=== PATIENT | female | born 1965 | race Caucasian/White ===

== ENCOUNTER 2021-04-24 15:08 | Inpatient (IN) | payer BC, SELFPAY ==
[2021-04-24] VITALS (68 sets, daily range): BP systolic 112–158; BP diastolic 73–109; PULSE 88–137; RESP 11–34; TEMP 36.4–39.4; O2SAT 89–99
--- NOTE | 2021-04-24 15:00 | RT.EKG_ITS ---
APPROVED REPORT Exam: Resting ECG Reason for Exam: left shoulder pain Patient Location: E HR:107 bpm ECG Measurements Heart Rate 107 AXIS OR 181 P 38 QRSd 93 QRS -16 QT 349 T [id number] QTc 466 Conclusion Sinus tachycardia. Nonspecific st changes
--- NOTE | 2021-04-24 15:45 | DI.RAD_ITS ---
Exam(s) XR CHEST 2V PA LATERAL EXAM: XR CHEST 2V PA LATERAL CLINICAL HISTORY: chest pain, sob TECHNIQUE: 2D digital imaging was performed. COMPARISON: No exams were available for comparison FINDINGS: MEDIASTINUM: Normal. HEART: Normal. PULMONARY VASCULATURE: Normal. LUNGS: Clear. EKG leads. PLEURAL SPACE: No pleural effusion or pneumothorax. BONE:Normal. Left shoulder unremarkable as visualized. IMPRESSION: No acute pulmonary findings. DATA REPOSITORY: RADIATION DOSE DELIVERED:
--- NOTE | 2021-04-24 16:13 | ED.GENADUL_ITS ---
Discharge Plan Disposition Patient Disposition: [facility] INPATIENT Condition: Stable Discharge Details Clinical Impression: Left shoulder pain, Tachycardia Admit Date/Time: 04/24/21 21:19 Admit Provider: Crow Souza Attending Provider: Crow Souza Primary Care Provider: Maylin,[facility] ED Provider: Ioana Trimble Medical Decision Making 55-year-old female presents to ER chief complaint of left shoulder pain which began this morning around 730. Patient states that she slept wrong with her arm over her head and woke up with increased left shoulder pain. Worse on the posterior aspect of her left shoulder with palpation. She reports that it radiates up into her neck and into her left axilla. She reports shortness of breath with the pain. She denies any nausea diaphoresis cough vomiting diarrhea or abdominal pain. She reports that she had a cortisone shot 5 months ago in the shoulder was told she had arthritis. Recently seen by cardiology on and diagnosed with a heart murmur. She denies taking any pain medications prior to arrival she does endorse Biofreeze. EKG was reviewed by Dr. Murray ER attending, sinus tachycardia with not ST changes in V2 V3 V5 and V6. No old EKG available for review. At this time cardiac work-up ordered including serial troponins. Chest x-ray ordered. I will consider chest CT due to tachycardia and atypical chest pain. Will add on a D-dimer. 324 mg aspirin ordered and 2 mg of Valium for muscle relaxant. At this time patient has no IV access she has been poked multiple times by staffing operations manager prior to my arrival. EXAM: XR CHEST 2V PA LATERAL CLINICAL HISTORY: chest pain, sob TECHNIQUE: 2D digital imaging was performed. COMPARISON: No exams were available for comparison FINDINGS: MEDIASTINUM: Normal. HEART: Normal. PULMONARY VASCULATURE: Normal. LUNGS: Clear. EKG leads. PLEURAL SPACE: No pleural effusion or pneumothorax. BONE:Normal. Left shoulder unremarkable as visualized. IMPRESSION: No acute pulmonary findings. Patient has received 2 mg IM, 4 mg morphine, 4 mg of Zofran normal saline is running at 350 an hour patient is still tachycardic with a rate of 115-123 at this time lidocaine patch ordered and 1 sublingual 0.4 mg nitro see if this alleviates the pain. Patient reports to staffing operations manager that her pain is still a 10 out of 10. However she is resting quietly on bed. COMPARISON: CR XR CHEST 2V PA LATERAL 04/24/2021 5:03 PM FINDINGS: Pulmonary arteries: Normal. No pulmonary emboli. Aorta: Unremarkable. No aortic aneurysm. No aortic dissection. Lungs: Unremarkable. No consolidation. No masses. Pleural spaces: Unremarkable. No pneumothorax. No pleural effusion. Heart: Unremarkable. No cardiomegaly. No pericardial effusion. Lymph nodes: Unremarkable. No enlarged lymph nodes. Bones/joints: Unremarkable. No acute fracture. Soft tissues: Unremarkable. IMPRESSION: 1. No acute findings. 2. No pulmonary arterial embolism. Awaiting second troponin repeat EKG, mammogram hydromorphone ordered. 2014: Repeat EKG shows improvement in the ST depressions in V2 V3 V4 V5 V6. Patient's pain is down to a 6 out of 10 at this time. Liter normal saline ordered. Second troponin is pending. Patient up to the bathroom, heart rate shot up to 137. Second liter of normal saline ordered and is infusing at this time. Discussed options with patient I do recommend admission for observation will discuss with hospitalist. Spoke with Dr. Thompson who is on-call for hospitalist regarding patient case and details he agrees to accept patient for admission for observation. I will call the patient's family. Spoke with Patients Ezekiel, He verbalizes understanding of plan of care. Dr. Coelho recommends CT abdomen pelvis due to hematuria. Order added. The report of CT abdomen pelvis is unremarkable for any acute pathology. Of no te there is some submucosal edema of the proximal intrathoracic portion of the stomach and distal esophagus. And a small hiatal hernia. No kidney stone no hydronephrosis, no abdominal aortic aneurysm. Differential according to the rad read is gastritis/esophagitis and malignancy. Patient was transported up to the floor in stable condition. This text was generated using [employer] system, please disregard any oddities of phrase or misspellings. HPI General Date/Time Provider Initiated Documentation: 04/24/21 15:13 . Limitations to Documentation: no limitations . Information obtained by: patient and RN notes reviewed . HPI Narrative: 55-year-old female presents to ER chief complaint of left shoulder pain which began this morning around 730. Patient states that she slept wrong with her arm over her head and woke up with increased left shoulder pain. Worse on the posterior aspect of her left shoulder with palpation. She reports that it radiates up into her neck and into her left axilla. She reports shortness of breath with the pain. She denies any nausea diaphoresis cough vomiting diarrhea or abdominal pain. She reports that she had a cortisone shot 5 months ago in the shoulder was told she had arthritis. Recently seen by cardiology on and diagnosed with a heart murmur. She denies taking any pain medications prior to arrival she does endorse Biofreeze. Related Data Home Medications Medication Instructions Recorded Confirmed famotidine [Pepcid] 40 mg PO DAILY 04/24/21 04/24/21 omeprazole 20 mg PO DAILY 04/24/21 04/24/21 Allergies Allergy/AdvReac Type Severity Reaction Status Date / Time acetaminophen [From Vicodin] Allergy Unverified 04/24/21 15:47 cephalexin [From Keflex] Allergy Unverified 04/24/21 15:47 hydrocodone [From Vicodin] Allergy Unverified 04/24/21 15:47 meperidine [From Demerol] Allergy Unverified 04/24/21 15:48 General Stated Complaint: Chest Pain CHAITANYA: 2 Review of Systems Narrative: Constitutional: Negative for weight loss, alert and oriented, well groomed, normal body habitus, appears uncomfortable. HEENT: Denies trauma, headaches, blurry vision, nasal discharge, sore throat, trouble swallowing. Chest: Denies palpitations, irregular rhythm, reports left shoulder pain left axilla pain. Respiratory: Denies cough, hemoptysis. Reports positive shortness of breath w ith the pain. GI: Denies abdominal pain, nausea, vomiting, diarrhea, constipation. : Denies dysuria, hematuria, flank pain, rectal bleeding. Musculoskeletal: Posterior left shoulder pain worse with palpation. Worse with movement. Neuro: Denies dizziness, blurry vision, weakness, syncope, headache or facial numbness. Hematologic: Denies easy bruising, intolerance to heat or cold, hair loss. [facility] Social History Smoking/Tobacco Use Status: Never Smoking risk assessment performed?: Yes Alcohol Intake: never Substance use type: does not use Do you feel safe at home: Yes Exam Narrative Exam Narrative: Constitutional: Alert and oriented x3. Appears stated age. Normal body habitus. Head: Normocephalic, no trauma. Eyes: Pupils PERRLA, Red reflex noted, EOM's intact. Eyelids symmetrical without lesions, discharge, or swelling. ENT: Bilateral TM's WNL, External ear normal to inspection, no mastoid TTP, swelling, or erythema, Nasal turbinates WNL, no nasal discharge. Normal dentition, Posterior pharynx WNL, no exudate. Chest: RRR, Normal S1, S2, distal pulses intact. Resp: Lungs clear to auscultation bilaterally, no wheezes, rales, or rhonchi. Musculoskeletal: Normal gait, 5/5 strength to all four extremities. Tenderness noted with palpation to the sternocleidomastoid muscle no obvious deformity swelling or erythema noted. Skin: No suspicious rashes or lesions. Capillary refill less than 2 sec. Neurologic: Cranial nerves II-XII intact. Alert and oriented x 3. DTR's intact. Hematologic/Lymphatic: No ecchymosis, no lymphadenopathy. Course Vital Signs Vital signs: Vital Signs Respiratory Rate 27 H 04/24/21 15:29 Pulse Oximetry 99 04/24/21 15:29 Temperature 36.4 C L 04/24/21 15:42 Temperature Source Skin 04/24/21 15:42 Pulse 108 H 04/24/21 15:42 Pulse 109 H 04/24/21 15:50 Respiratory Rate 16 04/24/21 15:50 Respiratory Effort Non-Labored 04/24/21 15:49 Blood Pressure 144/84 H 04/24/21 15:42 Blood Pressure Position Supine 04/24/21 15:42 Pulse Oximetry 99 04/24/21 15:42 Oxygen Delivery Method Room Air 04/24/21 15:42 Oxygen Flow Rate 0 04/24/21 15:42 Pain Level 20 04/24/21 15:42
[2021-04-24] MEDS: diazePAM 2 MG TAB PO (16:20)
[2021-04-24] MEDS: Aspirin 81 MG CHEW 324 MG CH (16:20)
[2021-04-24 17:05] LABS: Abs Immature Grans 0.06 10^3/uL (0.0-0.06); Absolute Monocyte Count 0.83 10^3/uL (0.1-0.8); Absolute Neutrophil Count 12.04 10^3/uL (1.2-6.7); Basophils % 0.4; HCT 39.1 % (36.0-46.0); HGB 12.9 g/dL (11.2-15.7); Immature Grans % 0.4; Lymphocytes % 7.8; MCH 28.7 pg (27.0-33.0); MCV 86.9 fL (80-95); MPV 9.4 fL (8.0-11.0); Monocytes % 5.9; Neutrophils % 85.5; Nucleated RBC 0 %; Platelet Count 328 10^3/uL (130-400); RDW 13.4 % (11.7-14.6); RDW-SD 42.5 fL; WBC 14.08 10^3/uL (4.4-10.8)
[2021-04-24 17:06] LABS: Absolute Basophil Count 0.06 10^3/uL (0.0-0.2)
[2021-04-24 17:13] LABS: ALT 23 U/L (14-59); AST 20 U/L (15-37); Albumin 4.1 g/dL (3.4-5.0); Alkaline Phosphatase 93 U/L (46-116); Anion Gap 12.5 mmol/L (3-11); BUN 15 mg/dL (7-18); Bilirubin, Total 0.5 mg/dL (0.2-1.0); CO2 23.5 mmol/L (21.0-32.0); CREATININE 1.1 mg/dL (0.55-1.02); Calcium 9.4 mg/dL (8.5-10.1); Chloride 104 mmol/L (98-107); Glucose 125 mg/dL (74-106); Magnesium 1.8 mg/dL (1.8-2.4); Potassium 3.5 mmol/L (3.5-5.1); Sodium 140 mmol/L (136-145)
[2021-04-24] MEDS: Normal Saline 1,000 ML 350 ML IV (17:21)
[2021-04-24 17:23] LABS: Troponin I < 0.05 ng/mL (<0.06)
[2021-04-24 17:35] LABS: Prothrombin Time 10.1 sec (9.3-11.0)
--- NOTE | 2021-04-24 17:36 | DI.VRAD_ITS ---
PROCEDURE INFORMATION: Exam: XR Chest Exam date and time: 04/24/2021 4:00 PM Age: 55 years old Clinical indication: Other: Chest pain, left shoulder pain; Additional info: Chest pain, SOB, left shoulder pain, TECHNIQUE: Imaging protocol: XR of the chest. Views: 2 views. Total images: 2 COMPARISON: No relevant prior studies available. FINDINGS: Lungs: Unremarkable. No consolidation. Pleural spaces: Unremarkable. No pleural effusion. No pneumothorax. Heart/Mediastinum: Unremarkable. No cardiomegaly. Bones/joints: Unremarkable. IMPRESSION: No acute findings. Dictated and Authenticated by: Marianela Muñoz MD. Ordering:MARIA ALEJANDRA Triplett MD
[2021-04-24 17:42] LABS: D-Dimer 430 ng/mlFEU (<500)
[2021-04-24] MEDS: Ondansetron 4 MG/2 ML VIAL IVP (17:46)
--- NOTE | 2021-04-24 18:30 | DI.CT_ITS ---
Exam(s) CT CHEST PE CTA EXAM: CT CHEST PE CTA CLINICAL HISTORY: Tachycardia, Left Shoulder pain, R/O PE. TECHNIQUE: Imaging Protocol: Axial CT angiography was performed with multi-slice acquisition and mu lti-planar and/or 3D reconstructions. CONTRAST MATERIAL: Intravenous: Omnipaque 350 Contrast volume:structured data in ml COMPARISON: No exams were available for comparison FINDINGS: Pulmonary Arteries: No evidence of filling defect to suggest pulmonary emboli. Tracheobronchial tree: Patent where visualized. Mediastinum and Maegan: No dominant adenopathy or fluid collection. Hiatal hernia. Pulmonary parenchyma: No consolidation or dominant measurable mass. No architectural distortion. Pleura: No effusion or pneumothorax. Heart: The heart is not dilated. No coronary artery calcifications are seen. Aorta: Thoracic aorta non-dilated. Upper abdomen: Status post cholecystectomy. Bones: Normal. IMPRESSION: No evidence of pulmonary embolism or other acute abnormality.. RADIATION DOSE DELIVERED: 437.92mGy.cm Total DLP DATA REPOSITORY: All CT scans at this facility are submitted to the National Radiology Data Registry (NRDR) Dose Index Registry (DIR) with the [employer] (ACR). RADIATION OPTIMIZATION: All CT scans at this facility use at least one of these dose optimization te chniques: automated exposure control; mA and/or kV adjustment per patient size (includes targeted exa ms where dose is matched to clinical indication); or iterative reconstruction.
[2021-04-24] MEDS: Lidocaine 5% Patch 1 PATCH TP (18:36)
[2021-04-24] MEDS: nitroGLYcerin 0.4 MG TAB SL (18:36)
[2021-04-24] MEDS: Omnipaque 350 MG/ML 100 ML BTL IJ ×2 (19:13→21:58)
[2021-04-24] MEDS: Normal Saline - Diluent 50 ML VIAL IV ×2 (19:29→21:58)
--- NOTE | 2021-04-24 19:44 | DI.VRAD_ITS ---
PROCEDURE INFORMATION: Exam: CTA Chest With Contrast Exam date and time: 04/24/2021 6:44 PM Age: 55 years old Clinical indication: Patient HX: Tachycardia, left shoulder pain; Additional info: R/0 pe TECHNIQUE: Imaging protocol: Computed tomographic angiography of the chest with contrast. 3D rendering (Not supervised by radiologist): MIP and/or 3D reconstructed images were created by the technologist. Total images: 1560 COMPARISON: CR XR CHEST 2V PA LATERAL 04/24/2021 5:03 PM FINDINGS: Pulmonary arteries: Normal. No pulmonary emboli. Aorta: Unremarkable. No aortic aneurysm. No aortic dissection. Lungs: Unremarkable. No consolidation. No masses. Pleural spaces: Unremarkable. No pneumothorax. No pleural effusion. Heart: Unremarkable. No cardiomegaly. No pericardial effusion. Lymph nodes: Unremarkable. No enlarged lymph nodes. Bones/joints: Unremarkable. No acute fracture. Soft tissues: Unremarkable. IMPRESSION: 1. No acute findings. 2. No pulmonary arterial embolism. Dictated and Authenticated by: Marianela Muñoz MD. Ordering:MARIA ALEJANDRA Triplett MD
[2021-04-24] MEDS: HYDROmorphone 2 MG/ML VIAL 1 MG IVP (20:04)
[2021-04-24 20:33] LABS: Troponin I < 0.05 ng/mL (<0.06)
[2021-04-24] MEDS: Normal Saline 1,000 ML 1000 ML IV (20:33)
[2021-04-24 20:36] LABS: Bilirubin Negative (Negative); Blood Small (Negative); Clarity Clear (Clear); Glucose Negative (Negative); Ketones Negative (Negative); Leukocyte Esterase Negative (Negative); Nitrite Negative (Negative); Specific Gravity 1.015 (1.005-1.025); Urobilinogen 0.2 EU/dL (Up TO 0.2)
[2021-04-24 20:49] LABS: Bacteria Negative HPF (Negative); C & S Indicated? No; Casts Negative LPF (Negative); Crystals Negative HPF (Negative); Epithelial Cells Few HPF (Negative); Mucus Negative (Negative); Other Cells Few Transitional (Negative)
--- NOTE | 2021-04-24 21:25 | W.PM.HP.N ---
Date of service: 04/24/21 Time of Service: 21:26 Assessment and Plan Assessment and plan (1) Left shoulder pain: Status: Acute Assessment and plan: Etiology of this is unclear. It may be advisable to try a subacromial injection of lidocaine to see if this helps her. (2) Tachycardia: Status: Acute Assessment and plan: Etiology of this is unclear. Thyroid studies are pending. We will see if this improves with the second liter intravenous fluids. We will recheck a troponin in the morning. (3) Hematuria: Status: Acute Assessment and plan: It would be advisable to do a CT of the abdomen and pelvis. History of Present Illness History of Present Illness Chief Complaint: Left shoulder pain and tachycardia Narrative: This 55-year-old female who presented here with left shoulder pain. She been evaluated emergency department no clear etiology found. While she has been here she has received lidocaine patch and hydromorphone for the pain. She has had no known injury. She has had shoulder injections in the past with steroids. [place] is from out of town and is in the area with her to be camping at [facility] in a camper. She has had extensive evaluation including a CT of her chest, 2 electrocardiograms and serial troponins. The only abnormality noted is a white count of 14,000. She has had some chills. She saw [facility] few days ago and was diagnosed with a bicuspid aortic valve and mild aortic stenosis. She has had both her coronavirus vaccines. Her has had a cough but she has not. He has been elected to admit her on observation. She is receiving her second liter of IV fluids to see if this will help her tachycardia. Review of Systems Constitutional Constitutional: Denies body ache(s), Reports chills and Denies fever(s) Cardiovascular Cardiovascular: Denies chest pain, Reports rapid heart rate and Denies dyspnea Respiratory Respiratory: Denies dyspnea Gastrointestinal Gastrointestinal: Denies constipation, Denies heartburn, Denies diarrhea, Denies vomiting and Denies hematemesis Genitourinary Genitourinary: Denies abnormal vaginal bleeding, Denies difficulty voiding, Denies urinary hesitancy and Denies urinary urgency Musculoskeletal Musculoskeletal: Reports arthralgias and Reports limited range of motion Comments: Above symptoms related to left shoulder. [facility] Social History Smoking/Tobacco Use Status: Never Smoking risk assessment performed?: Yes Alcohol Intake: never Substance use type: does not use Do you feel safe at home: Yes Meds Allergies and Home Medications Allergies Allergy/AdvReac Type Severity Reaction Status Date / Time acetaminophen [From Vicodin] Allergy Unverified 04/24/21 15:47 cephalexin [From Keflex] Allergy Unverified 04/24/21 15:47 hydrocodone [From Vicodin] Allergy Unverified 04/24/21 15:47 meperidine [From Demerol] Allergy Unverified 04/24/21 15:48 Home Medications Medication Instructions Recorded Confirmed Type famotidine [Pepcid] 40 mg PO DAILY 04/24/21 04/24/21 History omeprazole 20 mg PO DAILY 04/24/21 04/24/21 History Exam Const General: cooperative and acute distress Nutritional Appearance: overweight Orientation: alert, awake and oriented x3 Neck Neck: normal visual inspection, no lymphadenopathy and no meningeal signs Resp Effort & Inspection: normal respiratory effort Auscultation: no rales, no rhonchi and no wheezes Cardio Jugular venous pressure: no JVD Rate: regular rate Heart Sounds: S1 normal, S2 normal and murmur (1/6) systolic GI Inspection: normal to inspection Palpation: soft, no hepatosplenomegaly and nontender Skin General skin exam: no rashes or lesions noted Neuro General: patient alert, patient awake and patient oriented x3 Sensory Exam: no sensory deficits noted Extrem Left upper extremity: normal to inspection; no cyanosis and no edema Other: Upper extremityThere is tenderness on palpating the left shoulder. There is no rash visible. She has normal left radial pulse. Results Labs Result diagrams: 04/24/21 16:43 04/24/21 16:43 Labs: Laboratory Results - last 24 hr 04/24/21 04/24/21 04/24/21 16:00 16:00 16:00 WBC Cancelled RBC Cancelled Hgb Cancelled Hct Cancelled MCV Cancelled MCH Cancelled MCHC Cancelled RDW Cancelled Plt Count Cancelled MPV Cancelled Immature Gran % Cancelled Neutrophils % Cancelled Band Neutrophils % Cancelled Lymphocytes % Cancelled Atypical Lymphs % Cancelled Monocytes % Cancelled Eosinophils % Cancelled Basophils % Cancelled Metamyelocytes % Cancelled Myelocytes % Cancelled Promyelocytes % Cancelled Other Cells % Cancelled Nucleated RBC % Cancelled Absolute Neutrophils Cancelled Absolute Lymphocytes Cancelled Absolute Monocytes Cancelled Absolute Eosinophils Cancelled Absolute Basophils Cancelled RBC Morphology Cancelled Polychromasia Cancelled Hypochromasia Cancelled Poikilocytosis Cancelled Basophilic Stippling Cancelled Anisocytosis Cancelled Microcytosis Cancelled Macrocytosis Cancelled Spherocytes Cancelled Tear Drop Cells Cancelled Ovalocytes Cancelled Stomatocytes Cancelled [place] Bodies Cancelled Madison Cells/Echinocytes Cancelled Acanthocytes (Spur) Cancelled Schistocytes Cancelled PT Cancelled INR Cancelled D-Dimer Sodium Cancelled Potassium Cancelled Chloride Cancelled Carbon Dioxide Cancelled Anion Gap Cancelled BUN Cancelled Creatinine Cancelled Estimated GFR/1.73 m2 Cancelled Glucose Cancelled Calcium Cancelled Magnesium Cancelled Total Bilirubin Cancelled AST Cancelled ALT Cancelled Alkaline Phosphatase Cancelled Troponin I Cancelled Total Protein Cancelled Albumin Cancelled Urine Color Urine Clarity Urine pH Ur Specific [place] Urine Protein Urine Ketones Urine Blood Urine Nitrite Urine Bilirubin Urine Urobilinogen Ur Leukocyte Esterase Urine RBC Urine WBC Ur Epithelial Cells Urine Crystals Urine Bacteria Urine Casts Urine Mucus Urine Other Ur Culture Indicated? Urine Glucose 04/24/21 04/24/21 04/24/21 16:00 16:43 16:43 WBC RBC Hgb Hct MCV MCH MCHC RDW Plt Count MPV Immature Gran % Neutrophils % Band Neutrophils % Lymphocytes % Atypical Lymphs % Monocytes % Eosinophils % Basophils % Metamyelocytes % Myelocytes % Promyelocytes % Other Cells % Nucleated RBC % Absolute Neutrophils Absolute Lymphocytes Absolute Monocytes Absolute Eosinophils Absolute Basophils RBC Morphology Polychromasia Hypochromasia Poikilocytosis Basophilic Stippling Anisocytosis Microcytosis Macrocytosis Spherocytes Tear Drop Cells Ovalocytes Stomatocytes [place] Bodies Madison Cells/Echinocytes Acanthocytes (Spur) Schistocytes PT 10.1 INR 1.0 D-Dimer Cancelled 430 Sodium 140 Potassium 3.5 Chloride 104 Carbon Dioxide 23.5 Anion Gap 12.5 H BUN 15 Creatinine 1.1 H Estimated GFR/1.73 m2 51.20 Glucose 125 H Calcium 9.4 Magnesium 1.8 Total Bilirubin 0.5 AST 20 ALT 23 Alkaline Phosphatase 93 Troponin I < 0.05 Total Protein 8.0 Albumin 4.1 Urine Color Urine Clarity Urine pH Ur Specific [place] Urine Protein Urine Ketones Urine Blood Urine Nitrite Urine Bilirubin Urine Urobilinogen Ur Leukocyte Esterase Urine RBC Urine WBC Ur Epithelial Cells Urine Crystals Urine Bacteria Urine Casts Urine Mucus Urine Other Ur Culture Indicated? Urine Glucose 04/24/21 04/24/21 04/24/21 16:43 19:47 20:25 WBC 14.08 H RBC 4.50 Hgb 12.9 Hct 39.1 MCV 86.9 MCH 28.7 MCHC 33.0 RDW 13.4 Plt Count 328 MPV 9.4 Immature Gran % 0.4 Neutrophils % 85.5 Band Neutrophils % Lymphocytes % 7.8 Atypical Lymphs % Monocytes % 5.9 Eosinophils % 0.0 Basophils % 0.4 Metamyelocytes % Myelocytes % Promyelocytes % Other Cells % Nucleated RBC % 0 Absolute Neutrophils 12.04 H Absolute Lymphocytes 1.10 L Absolute Monocytes 0.83 H Absolute Eosinophils 0.00 Absolute Basophils 0.06 RBC Morphology Polychromasia Hypochromasia Poikilocytosis Basophilic Stippling Anisocytosis Microcytosis Macrocytosis Spherocytes Tear Drop Cells Ovalocytes Stomatocytes [place] Bodies Madison Cells/Echinocytes Acanthocytes (Spur) Schistocytes PT INR D-Dimer Sodium Potassium Chloride Carbon Dioxide Anion Gap BUN Creatinine Estimated GFR/1.73 m2 Glucose Calcium Magnesium Total Bilirubin AST ALT Alkaline Phosphatase Troponin I < 0.05 Total Protein Albumin Urine Color Yellow Urine Clarity Clear Urine pH 7.0 Ur Specific [place] 1.015 Urine Protein Negative Urine Ketones Negative Urine Blood Small H Urine Nitrite Negative Urine Bilirubin Negative Urine Urobilinogen 0.2 Ur Leukocyte Esterase Negative Urine RBC 10-20 H Urine WBC 3-5 Ur Epithelial Cells Few Urine Crystals Negative Urine Bacteria Negative Urine Casts Negative Urine Mucus Negative Urine Other Few Transitional Ur Culture Indicated? No Urine Glucose Negative Last Vital Signs Temp 36.4 C L 04/24/21 15:42 Pulse 119 H 04/24/21 20:45 Resp 20 04/24/21 20:50 BP 129/81 04/24/21 20:45 Pulse Ox 92 04/24/21 20:50
--- NOTE | 2021-04-24 21:30 | DI.CT_ITS ---
Exam(s) CT ABDOMEN PELVIS W EXAM: CT ABDOMEN PELVIS W CLINICAL HISTORY: leukocytosis, Tachycardia, hematuria. TECHNIQUE: Imaging Protocol: Axial computed tomography images with coronal and sagittal reformatted images were created and reviewed CONTRAST MATERIAL: Intravenous: Omnipaque 350 Contrast volume:structured data in ml Oral: yes / no COMPARISON: CT CT CHEST PE CTA from 04/24/2021 FINDINGS: ABDOMEN: Lung Bases: Normal where visualized. Small hiatal hernia. Severe lower esophageal wall thickening. Dependent changes left base. Liver: Normal density. No measurable mass. Gallbladder and biliary tract: Status post cholecystectomy. Pancreas: Normal density, no abnormal calcifications or inflammatory process. Spleen: Normal. Kidneys: Normal size, contour and axis. No radiodense stones or obstructive uropathy. No masses seen. Adrenal glands: No masses seen. Abdominal Aorta: Abdominal portion non-dilated. PELVIS: Bladder: Symmetric distention, no gross wall thickening. Bowel: No obstruction or bowel wall thickening. Peritoneal cavity: No ascites, collection or mesenteric inflammatory response. Bones: Within normal limits. Reproductive organs: Within normal limits. Lymph nodes: Unremarkable. Impression: Hiatal hernia with marked thickening of the distal esophagus, suspicious for esophagitis. No evidenc e of perforation. RADIATION DOSE DELIVERED: 1,101.04mGy.cm Total DLP DATA REPOSITORY: All CT scans at this facility are submitted to the National Radiology Data Registry (NRDR) Dose Index Registry (DIR) with the [employer] (ACR). RADIATION OPTIMIZATION: All CT scans at this facility use at least one of these dose optimization te chniques: automated exposure control; mA and/or kV adjustment per patient size (includes targeted exa ms where dose is matched to clinical indication); or iterative reconstruction.
[2021-04-24 21:39] LABS: TSH (W/Ref FT4) 1.55 uIU/mL (0.36-3.74)
[2021-04-24 21:42] LABS: ESR 15 mm/hr (0-30)
[2021-04-24 21:48] LABS: Source Nasal/Nares
--- NOTE | 2021-04-24 22:18 | DI.VRAD_ITS ---
PROCEDURE INFORMATION: Exam: CT Abdomen And Pelvis With Contrast Exam date and time: 04/24/2021 9:31 PM Age: 55 years old Clinical indication: Other: Leukocytosis, tachycardia, hematuria TECHNIQUE: Imaging protocol: Computed tomography of the abdomen and pelvis with contrast. Total images: 1168 COMPARISON: CT CHEST PE CTA 04/24/2021 7:14 PM FINDINGS: Mediastinal space: There is a small hiatal hernia. Liver: Normal. No mass. Gallbladder and bile ducts: The gallbladder is surgically absent. Pancreas: Normal. No ductal dilation. Spleen: Normal. No splenomegaly. Adrenal glands: Normal. No mass. Kidneys and ureters: Normal. No hydronephrosis. Stomach and bowel: There is submucosal edema of the proximal, intrathoracic portion of the stomach and distal esophagus. Appendix: No evidence of appendicitis. Intraperitoneal space: Unremarkable. No free air. No significant fluid collection. Vasculature: Unremarkable. No abdominal aortic aneurysm. Lymph nodes: Unremarkable. No enlarged lymph nodes. Urinary bladder: Unremarkable as visualized. Reproductive: Unremarkable as visualized. Bones/joints: Unremarkable. No acute fracture. Soft tissues: Unremarkable. IMPRESSION: Small hiatal hernia with submucosal edema/wall thickening of the proximal, intrathoracic stomach and distal esophagus. Differential considerations include gastritis/esophagitis and malignancy. Dictated and Authenticated by: Marianela Muñoz MD. Ordering:MARIA ALEJANDRA Triplett MD
[2021-04-24 22:40] LABS: COVID-19 PCR Negative (Negative)
[2021-04-25] VITALS (17 sets, daily range): BP systolic 90–134; BP diastolic 52–77; PULSE 82–125; RESP 18–24; TEMP 36.5–40.2; O2SAT 94–100
[2021-04-25] MEDS: Ketorolac 30 MG/ML VIAL IVP (00:34)
[2021-04-25] MEDS: Naloxone 0.4 MG/ML VIAL IVP (00:36)
[2021-04-25] MEDS: Normal Saline Flush 10 ML SYR IVP ×3 (00:37→10:03)
[2021-04-25 00:58] LABS: Troponin I < 0.05 ng/mL (<0.06)
[2021-04-25] MEDS: DOXYCYCLINE 100 MG in Normal Saline 100 ML IVPB (01:05)
[2021-04-25] MEDS: Normal Saline 500 ML IV (01:07)
[2021-04-25] MEDS: Acetaminophen 325 MG TAB 650 MG PO ×2 (02:04→10:02)
--- NOTE | 2021-04-25 02:30 | NUR.NOTE ---
Nursing Note: This nurse arrived to handoff from previous nurse at approximately 2300 at bedside of patient. Off going nurse reports patient arrived to med-surg from ED at approximately 2252. Nurse reported patient was able to stand and pivot to void at bedside commode but is increasingly sleepy at this time. Continuous Sa02/CO2 monitor and 2l NC applied at this time by Gretel Duff and Dorota Whitehead RN. CC (Sol) reported to MD Souza fever 39.4. At approximately 0015 patient vital signs: 40.2, heart rate 125, bp 134/67, rr 24, 98 2.5L. Periodically patient sa02 would drop briefly to 88% on 2l. Patient increasingly sleepy, unable to take po ibuprofen for fever, opens eyes when gently shaken but unable to respond verbally. MD Souza notified of patients current condition. New orders given and IV Doxycycline, IV Narcan, and IV toradol given. Shortly after IV Narcan administered, patient opened her eyes, stated her head hurt and her left shoulder hurt. She then reported that she had to urinate. Patient able to stand and pivot to bedside commode with staff at side. Patient was able to void and back to bed. Patient able to answer all admission questions appropriately at this time (post IV narcan adminstration) - see EMAR. HIPAA form completed with patient. Patient continues to have a fever, see documentation of vital signs. Patient able to drink water and po acetaminophen ordered prn was given. Allergy on patient's list was verified to be a reaction to Vicodin. At around 0200 patient is sleepy, but is able to be awoken and answers appropriately. Continuous Sa02/CO2 monitor continues to be on patient as well as telemetry.
[2021-04-25] MEDS: Patch Removal 1 EACH TP (06:59)
[2021-04-25 07:11] LABS: Abs Immature Grans 0.19 10^3/uL (0.0-0.06); HGB 12.1 g/dL (11.2-15.7); MCH 28.3 pg (27.0-33.0); MCHC 32.7 % (32.0-36.0); MCV 86.7 fL (80-95); MPV 9.7 fL (8.0-11.0); Nucleated RBC 0 %; Platelet Count 265 10^3/uL (130-400); RBC 4.27 10^6/uL (3.93-5.22); RDW-SD 44.2 fL; WBC 19.13 10^3/uL (4.4-10.8)
[2021-04-25 07:31] LABS: Troponin I < 0.05 ng/mL (<0.06)
[2021-04-25 07:59] LABS: Absolute Neutrophil Count 17.41 10^3/uL (1.2-6.7); Bands % 15
[2021-04-25 08:00] LABS: Absolute Lymphocyte Count 0.96 10^3/uL (1.2-3.4); Absolute Monocyte Count 0.57 10^3/uL (0.1-0.8); Diff Comment Manual Differential; Metamyelocytes % 1; Polychromasia Present
[2021-04-25] MEDS: Doxycycline Hyclate 100 MG CAP PO (08:11)
[2021-04-25] MEDS: Omeprazole 20 MG CAPCR PO (08:11)
[2021-04-25] MEDS: Ibuprofen 600 MG TAB PO (08:11)
--- NOTE | 2021-04-25 08:35 | DI.RAD_ITS ---
Exam(s) XR SHOULDER LT COMPLETE 2+V EXAM: XR SHOULDER LT COMPLETE 2+V CLINICAL HISTORY: suspected septic shoulder. TECHNIQUE: 2D digital imaging was performed. COMPARISON: CR,XR XR CHEST 2V PA LATERAL from 04/24/2021 FINDINGS: BONES: No acute fracture is present. JOINTS: No dislocation present.Erosive changes AC joint. Spurring glenohumeral joint. No erosions. SOFT TISSUE: Normal. IMPRESSION: Erosive changes acromioclavicular joint, infectious vs inflammatory. DATA REPOSITORY: RADIATION DOSE DELIVERED:
[2021-04-25 08:40] LABS: C-Reactive Protein 12.51 mg/dL (0.0-0.3)
[2021-04-25] MEDS: levoFLOXacin 750 MG/150 ML BAG 100 MG IVPB (08:49)
[2021-04-25] MEDS: Normal Saline 1,000 ML 125 ML IV (08:49)
--- NOTE | 2021-04-25 08:50 | DI.VRAD_ITS ---
PROCEDURE INFORMATION: Exam: XR Left Shoulder Exam date and time: 04/25/2021 8:18 AM Age: 55 years old Clinical indication: Pain; Left; Patient HX: Suspected septic shoulder. TECHNIQUE: Imaging protocol: XR Left shoulder. Views: 2 or more views. COMPARISON: CR XR CHEST 2V PA LATERAL 04/24/2021 5:03 PM FINDINGS: Bones/joints: The left AC joint is abnormal. Periosteal reaction and osteolysis appears to be present. Septic joint suspected, given the clinical history. The glenohumeral space and acromial humeral space appear maintained. Humeral head appears maintained. Soft tissues: See Bones/joints finding. IMPRESSION: Possible septic left AC joint. Dictated and Authenticated by: Lori Barton MD. Ordering:JR Bullock MD
[2021-04-25 09:00] LABS: Procalcitonin 2.8 ng/mL
[2021-04-25] MEDS: HYDROmorphone 2 MG/ML VIAL 1 MG IVP (10:02)
[2021-04-25] MEDS: VANCOMYCIN 1,000 MG in Normal Saline 250 ML 166.6666 MG IVPB (10:45)
--- NOTE | 2021-04-25 11:26 | INITIAL_ITS ---
- If Service Date Differs Date of service: 04/25/21 Time of Service: 11:26 Care Management Initial Assess REASON FOR HOSPITALIZATION:: left shoulder pain PAST MEDICAL HISTORY/PAST SURGICAL HISTORY:: none documented PREVIOUS FUNCTIONAL STATUS/SOCIAL/FAMILY SUPPORTS:: Valerie lives in [place], [place] with her Ezekiel. CURRENT FUNCTIONAL STATUS:: Valerie was [place] [facility] was able to meet with her. ADVANCE DIRECTIVES:: none on file Has patient been provided with info about the portal/API?: Yes Did the patient sign up for the portal?: No CODE STATUS:: Full Code INSURANCE COVERAGE / FINANCIAL ISSUES:: LENA BS PRIMARY CARE PHYSICIAN:: none local - patient lives in [place] POTENTIAL DISCHARGE NEEDS:: follow up with PCP and discharge plan of care PATIENT/FAMILY EDUCATION NEEDS:: Review of discharge instructions, medications, follow up plan, Ask Me Three TRANSPORTATION:: via private vehicle with PLAN:: Valerie was emergently transferred [place] [facility] Transportation by ambulance was coordinated by the nursing sugar refinery supervisor.
[2021-04-25] MEDS: Ondansetron 4 MG/2 ML VIAL IVP (11:30)
--- NOTE | 2021-04-25 11:33 | W.PM.DS.N ---
Date of service: 04/25/21 Time of Service: 11:33 DS: Diagnosis Discharge Diagnosis (1) Sepsis: Status: Acute Asessment and Plan: Gram positive cocci in chains from 2/2 pediatric blood culture bottles on 04/24/21 (2) Septic joint of left shoulder region: Status: Suspected (3) Nausea & vomiting: Status: Acute (4) Hematuria: Status: Acute (5) COVID-19 ruled out by laboratory testing: Status: Ruled-out Discharge Plan Disposition Patient Disposition: [facility] Condition: Stable Discharge Details Reason For Visit: Shoulder Pain, Tachycardia Admit Date/Time: 04/24/21 21:19 Admit Provider: Crow Souza Attending Provider: Crow Souza [facility] Hospital Course: Ms Gabriel is a 55 year old female with PMHx of L shoulder osteoarthritis (s/p joint injection 5 months ago), as well as h/o recently diagnosed heart murmur (?etiology) and GERD, who is camping in our area and normally receives her care in [facility] (ID), who was admitted to [facility] hospitalist service on 04/24/21 after presenting to [facility] ED c/o L shoulder pain which started yesterday morning. The patient denies trauma to the area, thinking that she had slept on it wrong. Her has had a cough. The patient tested negative for COVID-19 and is fully vaccinated. Her initial workup revealed a leucocytosis of 14.08. She did later spike a fever of 40.2. CT chest as well as abdomen/pelvis were obtained in the ED. CTA chest ruled out a PE (the patient had reported a pleuritic character to her left shoulder pain). CT abdomen/pelvis was obtained due to presence of microscopic hematuria on UA, revealing no renal pathology, though it showed possible esophagitis/gastritis (malignancy could not be excluded based on that read). Clinically, these were not patient's complaints at the time of presentation - her left shoulder pain was. L shoulder XR is suspicious for AC joint septic arthritis. While initially the patient was given oral doxycycline, attributing her symptoms to a possible tick-borne illness, vancomycin and levofloxacin were added this morning (the patient has a listed allergy to cephalosporins) as the patient's clinical illness progressed. Her blood cultures were just reported to be growing gram positive cocci in chains. Doxycycline was discontinued at this point (tick panel is still pending). This morning, the patient's white count is 19.13, up from 14.08, with 76 neutrophils and 15 bands. Her CRP is 17.28, up fro 12.51. Procalcitonin is 2.8. She does have swelling over her left shoulder and limited ROM (difficulty lifting and adducting her left arm). Given her XR findings and overall clinical picture, she needs to be a facility where orthopedic surgery is available for washout of left shoulder. Unfortunately, we do not have orthopedics available at our facility this weekend. The patient was accepted in transfer by Dr Medeiros of [facility] hospitalist medicine service with orthopedics consulting. It is important to mention that the patient developed nausea/vomiting after receiving IV hydromorphone for pain this morning, but also did get doxycycline last night, possibly contributing to nausea. In setting of this, her latest SBP is 98/50. Her lactate is 1.2. She is responding to aggressive IVF and antiemetics, and this low BP is felt to represent response to IV hydromorphone and perhaps a vagal component rather than septic shock. The patient is able to mentate and is felt to be stable for transfer to [facility] at this time while on IVF. She became oversedated in the ED from having a combination of IV morphine and benzodiazepines, requiring narcan, with return of normal mental status. The assistance of the [facility] medical team is greatly appreciated, and we wish the patient well. Total Critical Care Time on day of transfer 60 minutes. Please look for MAR for list of her inpatient medications. The list below reflects her outpatient prescriptions. Home Meds and New Rx's Prescriptions: No Action famotidine [Pepcid] 40 mg Tablet 40 mg PO DAILY RF: 0 omeprazole 20 mg Capsule,Delayed Release(Dr/Ec) 20 mg PO DAILY RF: 0 Discharge Instructions Stand Alone Forms: Nursing Discharge Form Activity:: Activity as Tolerated Equipment/Supplies:: No Equipment Needed Diet:: NPO Discharge Orders Discharge Orders: Discharge Order (Routine); Ordered 04/25/21 Ordered By: Ara Panchal Discharge Data Discharge Date/Time-TO BE ENTERED AT DEPARTURE: 04/25/21 13:03 DS: Summary Time Spent with Patient providing and/or coordinating discharge services: Greater than 30 minutes Status at Discharge Functional status at discharge: bed bound Overall status at discharge: patient is not back to baseline Mental Status: mental status grossly normal Speech and Movement: delayed speech Mood: congruent mood Affect: blunted Exam Narrative Exam Narrative: General: ill appearing middle-aged female, who is sitting up in bed, somewhat slow to respond, vomiting and diaphoretic on two of my visits with her, but when not nauseated, answers appropriately, A&Ox3 HEENT: EOMI, dry MM Heart: RRR, tachycardic, +slight GITA Lungs: CTAB Abdomen: soft,nontender, nondistended Extremities: L shoulder with mild swelling, no redness, warm. Cannot lift or adduct LUE. BLEs warm, 2+ pedal and radial pulses, no c/c Psych Mental Status: mental status grossly normal Speech and Movement: delayed speech Mood: congruent mood Affect: blunted DS: Data Vitals/I&O Vitals and I&O: Vital Signs Temperature 37.2 C 04/25/21 10:49 Temperature Source Tympanic 04/25/21 10:49 Pulse 92 H 04/25/21 10:49 Pulse Rhythm Regular 04/25/21 01:17 Pulse 119 H 04/24/21 22:20 Respiratory Rate 18 04/25/21 10:49 Respiratory Effort Non-Labored 04/25/21 01:17 Respiratory Depth Normal 04/25/21 01:17 Respiratory Pattern Normal 04/25/21 01:17 Blood Pressure 96/63 L 04/25/21 10:49 Blood Pressure Mean 96 04/24/21 22:19 Blood Pressure Position Supine 04/24/21 15:42 Pulse Oximetry 94 04/25/21 10:49 Oxygen Delivery Method Room Air 04/25/21 10:49 Oxygen Flow Rate 0 04/25/21 10:49 Pain Level 4 04/25/21 10:49 Comment 04/25/21 00:15 Intake & Output 04/24/21 04/24/21 04/25/21 11:59 23:59 11:59 Intake Total 1999 200.587 / 200.587 Output Total 1250 / 1250 Balance 1999 -1049.413 / -1049.413 Weight 69.3 kg Intake: IV 1999 100.587 / 100.587 Oral 100 / 100 Output: Urine 1225 / 1225 Emesis 25 / 25 Other: Urine Color Yellow Urine Appearance Clear Urine Odor Normal Comment void x 2 Emesis Description Retching Undigested Food Voiding Methods Bedside Commode Data Completed and Pending Completed studies during hospitalization [Text1]: CXR: No acute pulmonary findings. CTA chest: 1. No acute findings. 2. No pulmonary arterial embolism. CT abdomen/pelvis: Small hiatal hernia with submucosal edema/wall thickening of the proximal, intrathoracic stomach and distal esophagus. Differential considerations include gastritis/esophagitis and malignancy. XR L shoulder: Erosive changes acromioclavicular joint, infectious vs inflammatory. Labs on day of discharge: Labs from last 24 hours 04/25/21 04/25/21 04/25/21 11:24 11:24 06:39 WBC RBC Hgb Hct MCV MCH MCHC RDW Plt Count MPV Immature Gran % Neutrophils % Band Neutrophils % Lymphocytes % Atypical Lymphs % Monocytes % Eosinophils % Basophils % Metamyelocytes % Myelocytes % Promyelocytes % Other Cells % Nucleated RBC % Absolute Neutrophils Absolute Lymphocytes Absolute Monocytes Absolute Eosinophils Absolute Basophils RBC Morphology Polychromasia Hypochromasia Poikilocytosis Basophilic Stippling Anisocytosis Microcytosis Macrocytosis Spherocytes Tear Drop Cells Ovalocytes Stomatocytes [place] Bodies Jeff Cells/Echinocytes Acanthocytes (Spur) Schistocytes ESR PT INR D-Dimer VBG Lactate Pending Sodium Pending Potassium Pending Chloride Pending Carbon Dioxide Pending Anion Gap Pending BUN Pending Creatinine Pending Estimated GFR/1.73 m2 Pending Glucose Pending Calcium Pending Magnesium Total Bilirubin AST ALT Alkaline Phosphatase Troponin I C-Reactive Protein Pending Total Protein Albumin Procalcitonin 2.8 TSH Urine Color Urine Clarity Urine pH Ur Specific [place] Urine Protein Urine Ketones Urine Blood Urine Nitrite Urine Bilirubin Urine Urobilinogen Ur Leukocyte Esterase Urine RBC Urine WBC Ur Epithelial Cells Urine Crystals Urine Bacteria Urine Casts Urine Mucus Urine Other Ur Culture Indicated? Urine Glucose A.phagocytophil DNA PCR B. divergens/MO-1 PCR Babesia duncani (PCR) Babesia microti DNA PCR Borrelia (PCR) COVID-19 Source SARS-CoV-2 (PCR) E.chaffeensis DNA (PCR) E.ewingii/canis DNA PCR E. muris-like DNA (PCR) 04/25/21 04/25/21 04/25/21 06:39 06:39 00:35 WBC 19.13 H D RBC 4.27 Hgb 12.1 Hct 37.0 MCV 86.7 MCH 28.3 MCHC 32.7 RDW 14.0 Plt Count 265 MPV 9.7 Immature Gran % See Differential Neutrophils % 76.0 Band Neutrophils % 15 Lymphocytes % 5.0 Atypical Lymphs % Monocytes % 3.0 Eosinophils % 0.0 Basophils % 0.0 Metamyelocytes % 1 Myelocytes % Promyelocytes % Other Cells % Nucleated RBC % 0 Absolute Neutrophils 17.41 H Absolute Lymphocytes 0.96 L Absolute Monocytes 0.57 Absolute Eosinophils 0.00 Absolute Basophils 0.00 RBC Morphology See Below Polychromasia Present Hypochromasia Poikilocytosis Basophilic Stippling Anisocytosis Microcytosis Macrocytosis Spherocytes Tear Drop Cells Ovalocytes Stomatocytes [place] Bodies [place] Cells/Echinocytes Acanthocytes (Spur) Schistocytes ESR PT INR D-Dimer VBG Lactate Sodium Potassium Chloride Carbon Dioxide Anion Gap BUN Creatinine Estimated GFR/1.73 m2 Glucose Calcium Magnesium Total Bilirubin AST ALT Alkaline Phosphatase Troponin I < 0.05 < 0.05 C-Reactive Protein 12.51 H Total Protein Albumin Procalcitonin TSH Urine Color Urine Clarity Urine pH Ur Specific [place] Urine Protein Urine Ketones Urine Blood Urine Nitrite Urine Bilirubin Urine Urobilinogen Ur Leukocyte Esterase Urine RBC Urine WBC Ur Epithelial Cells Urine Crystals Urine Bacteria Urine Casts Urine Mucus Urine Other Ur Culture Indicated? Urine Glucose A.phagocytophil DNA PCR B. divergens/MO-1 PCR Babesia duncani (PCR) Babesia microti DNA PCR Borrelia (PCR) COVID-19 Source SARS-CoV-2 (PCR) E.chaffeensis DNA (PCR) E.ewingii/canis DNA PCR E. muris-like DNA (PCR) 04/24/21 04/24/21 04/24/21 21:40 20:25 19:47 WBC RBC Hgb Hct MCV MCH MCHC RDW Plt Count MPV Immature Gran % Neutrophils % Band Neutrophils % Lymphocytes % Atypical Lymphs % Monocytes % Eosinophils % Basophils % Metamyelocytes % Myelocytes % Promyelocytes % Other Cells % Nucleated RBC % Absolute Neutrophils Absolute Lymphocytes Absolute Monocytes Absolute Eosinophils Absolute Basophils RBC Morphology Polychromasia Hypochromasia Poikilocytosis Basophilic Stippling Anisocytosis Microcytosis Macrocytosis Spherocytes Tear Drop Cells Ovalocytes Stomatocytes [place] Bodies Jeff Cells/Echinocytes Acanthocytes (Spur) Schistocytes ESR PT INR D-Dimer VBG Lactate Sodium Potassium Chloride Carbon Dioxide Anion Gap BUN Creatinine Estimated GFR/1.73 m2 Glucose Calcium Magnesium Total Bilirubin AST ALT Alkaline Phosphatase Troponin I C-Reactive Protein Total Protein Albumin Procalcitonin TSH 1.55 Urine Color Yellow Urine Clarity Clear Urine pH 7.0 Ur Specific [place] 1.015 Urine Protein Negative Urine Ketones Negative Urine Blood Small H Urine Nitrite Negative Urine Bilirubin Negative Urine Urobilinogen 0.2 Ur Leukocyte Esterase Negative Urine RBC 10-20 H Urine WBC 3-5 Ur Epithelial Cells Few Urine Crystals Negative Urine Bacteria Negative Urine Casts Negative Urine Mucus Negative Urine Other Few Transitional Ur Culture Indicated? No Urine Glucose Negative A.phagocytophil DNA PCR B. divergens/MO-1 PCR Babesia duncani (PCR) Babesia microti DNA PCR Borrelia (PCR) COVID-19 Source Nasal/Nares SARS-CoV-2 (PCR) Negative E.chaffeensis DNA (PCR) E.ewingii/canis DNA PCR E. muris-like DNA (PCR) 04/24/21 04/24/21 04/24/21 19:47 16:43 16:43 WBC 14.08 H RBC 4.50 Hgb 12.9 Hct 39.1 MCV 86.9 MCH 28.7 MCHC 33.0 RDW 13.4 Plt Count 328 MPV 9.4 Immature Gran % 0.4 Neutrophils % 85.5 Band Neutrophils % Lymphocytes % 7.8 Atypical Lymphs % Monocytes % 5.9 Eosinophils % 0.0 Basophils % 0.4 Metamyelocytes % Myelocytes % Promyelocytes % Other Cells % Nucleated RBC % 0 Absolute Neutrophils 12.04 H Absolute Lymphocytes 1.10 L Absolute Monocytes 0.83 H Absolute Eosinophils 0.00 Absolute Basophils 0.06 RBC Morphology Polychromasia Hypochromasia Poikilocytosis Basophilic Stippling Anisocytosis Microcytosis Macrocytosis Spherocytes Tear Drop Cells Ovalocytes Stomatocytes [place] Bodies [place] Cells/Echinocytes Acanthocytes (Spur) Schistocytes ESR PT INR D-Dimer VBG Lactate Sodium 140 Potassium 3.5 Chloride 104 Carbon Dioxide 23.5 Anion Gap 12.5 H BUN 15 Creatinine 1.1 H Estimated GFR/1.73 m2 51.20 Glucose 125 H Calcium 9.4 Magnesium 1.8 Total Bilirubin 0.5 AST 20 ALT 23 Alkaline Phosphatase 93 Troponin I < 0.05 < 0.05 C-Reactive Protein Total Protein 8.0 Albumin 4.1 Procalcitonin TSH Urine Color Urine Clarity Urine pH Ur Specific [place] Urine Protein Urine Ketones Urine Blood Urine Nitrite Urine Bilirubin Urine Urobilinogen Ur Leukocyte Esterase Urine RBC Urine WBC Ur Epithelial Cells Urine Crystals Urine Bacteria Urine Casts Urine Mucus Urine Other Ur Culture Indicated? Urine Glucose A.phagocytophil DNA PCR B. divergens/MO-1 PCR Babesia duncani (PCR) Babesia microti DNA PCR Borrelia (PCR) COVID-19 Source SARS-CoV-2 (PCR) E.chaffeensis DNA (PCR) E.ewingii/canis DNA PCR E. muris-like DNA (PCR) 04/24/21 04/24/21 04/24/21 16:43 16:00 16:00 WBC RBC Hgb Hct MCV MCH MCHC RDW Plt Count MPV Immature Gran % Neutrophils % Band Neutrophils % Lymphocytes % Atypical Lymphs % Monocytes % Eosinophils % Basophils % Metamyelocytes % Myelocytes % Promyelocytes % Other Cells % Nucleated RBC % Absolute Neutrophils Absolute Lymphocytes Absolute Monocytes Absolute Eosinophils Absolute Basophils RBC Morphology Polychromasia Hypochromasia Poikilocytosis Basophilic Stippling Anisocytosis Microcytosis Macrocytosis Spherocytes Tear Drop Cells Ovalocytes Stomatocytes [place] Bodies Jeff Cells/Echinocytes Acanthocytes (Spur) Schistocytes ESR 15 PT 10.1 INR 1.0 D-Dimer 430 VBG Lactate Sodium Potassium Chloride Carbon Dioxide Anion Gap BUN Creatinine Estimated GFR/1.73 m2 Glucose Calcium Magnesium Total Bilirubin AST ALT Alkaline Phosphatase Troponin I C-Reactive Protein Total Protein Albumin Procalcitonin TSH Urine Color Urine Clarity Urine pH Ur Specific [place] Urine Protein Urine Ketones Urine Blood Urine Nitrite Urine Bilirubin Urine Urobilinogen Ur Leukocyte Esterase Urine RBC Urine WBC Ur Epithelial Cells Urine Crystals Urine Bacteria Urine Casts Urine Mucus Urine Other Ur Culture Indicated? Urine Glucose A.phagocytophil DNA PCR Pending B. divergens/MO-1 PCR Pending Babesia duncani (PCR) Pending Babesia microti DNA PCR Pending Borrelia (PCR) Pending COVID-19 Source SARS-CoV-2 (PCR) E.chaffeensis DNA (PCR) Pending E.ewingii/canis DNA PCR Pending E. muris-like DNA (PCR) Pending 04/24/21 04/24/21 04/24/21 16:00 16:00 16:00 WBC Cancelled RBC Cancelled Hgb Cancelled Hct Cancelled MCV Cancelled MCH Cancelled MCHC Cancelled RDW Cancelled Plt Count Cancelled MPV Cancelled Immature Gran % Cancelled Neutrophils % Cancelled Band Neutrophils % Cancelled Lymphocytes % Cancelled Atypical Lymphs % Cancelled Monocytes % Cancelled Eosinophils % Cancelled Basophils % Cancelled Metamyelocytes % Cancelled Myelocytes % Cancelled Promyelocytes % Cancelled Other Cells % Cancelled Nucleated RBC % Cancelled Absolute Neutrophils Cancelled Absolute Lymphocytes Cancelled Absolute Monocytes Cancelled Absolute Eosinophils Cancelled Absolute Basophils Cancelled RBC Morphology Cancelled Polychromasia Cancelled Hypochromasia Cancelled Poikilocytosis Cancelled Basophilic Stippling Cancelled Anisocytosis Cancelled Microcytosis Cancelled Macrocytosis Cancelled Spherocytes Cancelled Tear Drop Cells Cancelled Ovalocytes Cancelled Stomatocytes Cancelled [place] Bodies Cancelled Jeff Cells/Echinocytes Cancelled Acanthocytes (Spur) Cancelled Schistocytes Cancelled ESR PT Cancelled INR Cancelled D-Dimer Cancelled VBG Lactate Sodium Potassium Chloride Carbon Dioxide Anion Gap BUN Creatinine Estimated GFR/1.73 m2 Glucose Calcium Magnesium Total Bilirubin AST ALT Alkaline Phosphatase Troponin I C-Reactive Protein Total Protein Albumin Procalcitonin TSH Urine Color Urine Clarity Urine pH Ur Specific [place] Urine Protein Urine Ketones Urine Blood Urine Nitrite Urine Bilirubin Urine Urobilinogen Ur Leukocyte Esterase Urine RBC Urine WBC Ur Epithelial Cells Urine Crystals Urine Bacteria Urine Casts Urine Mucus Urine Other Ur Culture Indicated? Urine Glucose A.phagocytophil DNA PCR B. divergens/MO-1 PCR Babesia duncani (PCR) Babesia microti DNA PCR Borrelia (PCR) COVID-19 Source SARS-CoV-2 (PCR) E.chaffeensis DNA (PCR) E.ewingii/canis DNA PCR E. muris-like DNA (PCR) 04/24/21 16:00 WBC RBC Hgb Hct MCV MCH MCHC RDW Plt Count MPV Immature Gran % Neutrophils % Band Neutrophils % Lymphocytes % Atypical Lymphs % Monocytes % Eosinophils % Basophils % Metamyelocytes % Myelocytes % Promyelocytes % Other Cells % Nucleated RBC % Absolute Neutrophils Absolute Lymphocytes Absolute Monocytes Absolute Eosinophils Absolute Basophils RBC Morphology Polychromasia Hypochromasia Poikilocytosis Basophilic Stippling Anisocytosis Microcytosis Macrocytosis Spherocytes Tear Drop Cells Ovalocytes Stomatocytes [place] Bodies Jeff Cells/Echinocytes Acanthocytes (Spur) Schistocytes ESR PT INR D-Dimer VBG Lactate Sodium Cancelled Potassium Cancelled Chloride Cancelled Carbon Dioxide Cancelled Anion Gap Cancelled BUN Cancelled Creatinine Cancelled Estimated GFR/1.73 m2 Cancelled Glucose Cancelled Calcium Cancelled Magnesium Cancelled Total Bilirubin Cancelled AST Cancelled ALT Cancelled Alkaline Phosphatase Cancelled Troponin I Cancelled C-Reactive Protein Total Protein Cancelled Albumin Cancelled Procalcitonin TSH Urine Color Urine Clarity Urine pH Ur Specific [place] Urine Protein Urine Ketones Urine Blood Urine Nitrite Urine Bilirubin Urine Urobilinogen Ur Leukocyte Esterase Urine RBC Urine WBC Ur Epithelial Cells Urine Crystals Urine Bacteria Urine Casts Urine Mucus Urine Other Ur Culture Indicated? Urine Glucose A.phagocytophil DNA PCR B. divergens/MO-1 PCR Babesia duncani (PCR) Babesia microti DNA PCR Borrelia (PCR) COVID-19 Source SARS-CoV-2 (PCR) E.chaffeensis DNA (PCR) E.ewingii/canis DNA PCR E. muris-like DNA (PCR) 04/24/21 21:35 Blood Blood Culture - Pending 04/24/21 21:20 Blood Blood Culture - Pending Preliminary micro results at discharge 04/24/21 21:35 Blood Culture - Pending Blood 04/24/21 21:20 Blood Culture - Pending Blood [facility] Medical History Arthritis GERD (gastroesophageal reflux disease) Heart murmur Social History Smoking/Tobacco Use Status: Never Smoking risk assessment performed?: Yes Alcohol Intake: never Substance use type: does not use Do you feel safe at home: Yes
[2021-04-25] MEDS: Normal Saline 1,000 ML 1000 ML IV (11:38)
[2021-04-25 11:53] LABS: Lactate 1.2 mmol/L (0.6-1.4)
[2021-04-25 12:05] LABS: Anion Gap 11.7 mmol/L (3-11); BUN 11 mg/dL (7-18); C-Reactive Protein 17.28 mg/dL (0.0-0.3); CO2 20.3 mmol/L (21.0-32.0); CREATININE 1.1 mg/dL (0.55-1.02); Calcium 7.9 mg/dL (8.5-10.1); Chloride 106 mmol/L (98-107); Glucose 123 mg/dL (74-106); Potassium 3.5 mmol/L (3.5-5.1); Sodium 138 mmol/L (136-145)
[2021-04-25] MEDS: Pantoprazole 40 MG VIAL IVP (12:29)
[2021-04-28 22:56] LABS: Anaplasma phagocytophilum Negative (Negative); B. miyamotoi PCR Negative (Negative); Babesia divergens/MO-1 Negative (Negative); Babesia duncani Negative (Negative); Babesia microti Negative (Negative); Ehrlichia chaffeensis Negative (Negative); Ehrlichia ewingii/canis Negative (Negative); Ehrlichia muris eauclairensis Negative (Negative)
== END 2021-04-25 13:03 | disposition short-term general hospital (02) | DRG 872 ==
LOC: ER 21:26 → MS 22:37
PROVIDERS: Internal Medicine; Admitting Provider Family Medicine; Emergency Provider Registered Nurse Emergency; Visit Provider Family Medicine
DX: A41.9 Sepsis, unspecified organism (principal); M00.812 Arthritis due to other bacteria, left shoulder; Q23.1 Congenital insufficiency of aortic valve; Z20.822 Contact with and (suspected) exposure to COVID-19; R00.0 Tachycardia, unspecified; R31.9 Hematuria, unspecified; R11.2 Nausea with vomiting, unspecified
CPT/HCPCS: 36410; 36415; 71275; 80048; 80053; 84145; 85652; 87040; 87077; 87635; 87798; 93005; 96361; 96374; 96375; 99285; 71046; 73030; 74177; 81003; 81015; 83605; 83735; 84443; 84484; 85025; 85379; 85610; 86140; 93010; 99219; 99291; G0378; J1885; J1956; J2310; J2405; J3490